=== PATIENT | female | born 1965 | race Caucasian/White ===

== ENCOUNTER 2024-03-21 10:15 | Day surgery (SDC) | payer OTHER ==
[2024-03-21] MEDS ORDERED: LIDOCAINE HCL 2% 100 MG/5 ML IJ ONE (10:16)
[2024-03-21] MEDS ORDERED: Depo-Medrol 40 MG/ML IM ONE (10:16)
[2024-03-21] MEDS ORDERED: propofoL IV ONE ×2 (12:35→12:56)
[2024-03-21] MEDS ORDERED: MORPHINE SULFATE 2 MG INJ ONE (13:21)
--- NOTE | 2024-03-21 14:47 | XRAY ---
Indication: Bilateral L4-S1 MBB. Intraoperative fluoroscopy provided for 11 seconds. Single digital spot image submitted for interpretation demonstrates posterior needle tips projecting over expected left and right L4-S1 nerve roots. Correlate with intraoperative findings/report.
--- NOTE | 2024-03-21 15:00 | XRAY ---
11 seconds of fluoroscopy was used in surgery for a bilateral L4-S1 MBB.
== END 2024-03-21 14:05 | disposition home or self-care (01) ==
LOC: SDC-PAIN 10:15
PROVIDERS: ATTEND Psychiatry & Neurology Pain Medicine
DX: M47.816 Spondylosis without myelopathy or radiculopathy, lumbar region (principal)
CPT/HCPCS: 72020; 77002; J2270; J2704

== ENCOUNTER 2024-11-28 09:31 | Day surgery (SDC) | payer OTHER ==
[2024-11-28] MEDS ORDERED: methylPREDNISolone acetate IM ONE (09:32)
[2024-11-28] MEDS ORDERED: LIDOCAINE HCL 1% 50 MG/5 ML VL IJ ONE (09:32)
[2024-11-28] MEDS ORDERED: Sodium Chloride 0.9(Preservative Free) 10 ML IJ ONE (09:32)
[2024-11-28] MEDS ORDERED: Lactated Ringers 1,000 ML IV ONE (10:00)
[2024-11-28] MEDS ORDERED: propofoL IV ONE (12:02)
[2024-11-28] MEDS ORDERED: MORPHINE SULFATE 4 MG INJ ONE (12:24)
--- NOTE | 2024-11-28 13:24 | XRAY ---
Indication: Lumbar DAISY. Intraoperative fluoroscopy provided for 16 seconds. 2 digital spot image submitted for interpretation demonstrates posterior needle tip projecting posterior to lumbosacral junction interspace. Small amount of contrast injected for needle tip placement. Correlate with intraoperative findings/report.
--- NOTE | 2024-11-28 13:54 | XRAY ---
16 seconds of fluoroscopy were used in surgery for a lumbar DAISY.
== END 2024-11-28 13:05 | disposition home or self-care (01) ==
LOC: SDC-PAIN 09:31
PROVIDERS: ATTEND Psychiatry & Neurology Pain Medicine
DX: M54.16 Radiculopathy, lumbar region (principal)